=== PATIENT | female | born 1990 | race Caucasian/White ===

== ENCOUNTER 2019-12-11 03:24 | Emergency (ER) | payer MEDICAID ==
[~2019-12-11] VITALS: Ht 180.3 cm; Wt 88.1 kg
[2019-12-11 03:56] VITALS: Ht 180.3 cm; Wt 88.1 kg
[2019-12-11 05:21] VITALS: BP 143/102
== END 2019-12-11 05:20 | disposition home or self-care (01) ==
LOC: ED 03:24
DX: N61.1 Abscess of the breast and nipple (principal); L02.416 Cutaneous abscess of left lower limb; F11.10 Opioid abuse, uncomplicated
CPT/HCPCS: 90715; J2001

== ENCOUNTER 2020-01-30 08:00 | Emergency (ER) | payer MEDICAID ==
[~2020-01-30] VITALS: Ht 180.3 cm; Wt 86.2 kg
[2020-01-30 08:01] VITALS: Ht 180.3 cm; Wt 86.2 kg
[2020-01-30 17:24] VITALS: BP 115/65
== END 2020-01-30 17:24 | disposition home or self-care (01) ==
LOC: ED 08:00
DX: S01.81XA Laceration without foreign body of other part of head, initial encounter (principal); F17.210 Nicotine dependence, cigarettes, uncomplicated; X58.XXXA Exposure to other specified factors, initial encounter; Y93.89 Activity, other specified; Y92.89 Other specified places as the place of occurrence of the external cause; Y99.8 Other external cause status
CPT/HCPCS: 90715; J2001

== ENCOUNTER 2020-02-07 23:02 | Emergency (ER) | payer MEDICAID ==
[~2020-02-07] VITALS: Ht 177.8 cm; Wt 90.7 kg
[2020-02-08 00:43] VITALS: BP 149/95; Ht 177.8 cm; Wt 90.7 kg
== END 2020-02-08 01:38 | disposition home or self-care (01) ==
LOC: ED 23:02
DX: S01.81XD Laceration without foreign body of other part of head, subsequent encounter (principal); X58.XXXD Exposure to other specified factors, subsequent encounter